=== PATIENT | female | born 1960 | race Caucasian/White ===

== ENCOUNTER 2020-05-14 14:55 | Outpatient (CLI) | payer OTHER, SELFPAY ==
--- NOTE | 2020-05-14 15:23 | MM_ITS ---
WS: [id number] BILATERAL DIGITAL SCREENING MAMMOGRAPHY WITH CAD CLINICAL INFORMATION: SCREEN HISTORY: Screening mammogram. No current complaints. COMPARISON: TECHNIQUE: Bilateral CC and MLO views. FINDINGS: The breasts are composed of heterogeneous fibroglandular density tissue, which can limit the detectio n of small underlying mass lesions. No suspicious mass, asymmetry, calcifications, or architectural d istortion. No evidence of malignancy. MM/[id number] IMPRESSION: BI-RADS: 1-Negative FOLLOW UP: 1 Year Follow-up Recommend return to annual screening mammography.
== END 2020-05-14 14:56 | disposition home or self-care (01) ==
PROVIDERS: PCP Family Medicine; Visit Provider Family Medicine
DX: Z12.31 Encounter for screening mammogram for malignant neoplasm of breast (principal)
CPT/HCPCS: 77067

== ENCOUNTER 2020-09-05 08:58 | Outpatient (CLI) | payer OTHER, SELFPAY ==
[2020-09-05 08:18] VITALS: BMI 30.2
[2020-09-05 09:13] VITALS: BP 172/88; PULSE 97; RESP 16; TEMP 37.3; O2SAT 98
--- NOTE | 2020-09-05 09:14 | A.OFFVIS_ITS ---
Patient Information Referred by: Anatoliy Kapadia Symptom onset date: 09/04/20 COVID 19 common symptoms: positive fever(s), chills and nasal congestion COVID 19 other sytmptoms: negative chest pressure, chest pain, pleuritic pain, requiring oxygen, requiring more oxygen or respiratory distress Severity: mild Treatment prior to arrival: antibiotics and steroids [facility] COVID test results: No Data to Display outside results available, scanned Criteria/Plan Inclusion/Exclusion Criteria weight >/= 40kg, + direct test </= 10 days ago and symptom onset </= 10 days ago age >/= 55 and has diabetes not requiring hospitalization, not requiring oxygen (if not chronically on oxygen) and no increase oxygen requirement (if chronically on oxygen) Patient education patient/caregiver received/reviewed fact sheet, Emergency Use Authorization /unapproved drug status discussed with patient/caregiver, alternatives to this treatment discussed with patient/caregiver, risks and benefits of medication reviewed with patient/caregiver, patient/caregiver given opportunity for questions, which were answered and patient/caregiver consents to receiving Monoclonal Antibody Treatment Plan for treatment Meets criteria for Monoclonal Antibody infusion
[2020-09-05 10:17] VITALS: BP 156/85; PULSE 79; RESP 16; O2SAT 99
[2020-09-05 11:13] VITALS: BP 170/81; PULSE 72; RESP 16; O2SAT 99
[2020-09-05 11:29] VITALS: BP 171/88; PULSE 80; RESP 18
[2020-09-05 12:10] VITALS: BP 153/84; PULSE 66; RESP 17; TEMP 37; O2SAT 99
[2020-09-05 12:11] VITALS: BP 153/84; PULSE 66; RESP 17; TEMP 37; O2SAT 99
--- NOTE | 2020-09-11 13:16 | DCPLANNER ---
Addendum entered by Kiah Lamb 09/17/20 14:01: purchasing manager called patient to check on patient after getting the BAM infusion. Patient stated that she is doing good. Has not been admitted anywhere. Original Note: purchasing manager had message that patient received the BAM infusion. purchasing manager called to check on patient. Patient stated that before the infusion that she had a head cold and a cough. Patient stated that after the infusion she just really has some cold symptoms. Patient stated that she is feeling good.
== END 2020-09-05 12:16 | disposition home or self-care (01) ==
PROVIDERS: PCP Family Medicine; Visit Provider Nurse Practitioner
DX: U07.1 COVID-19 (principal)
CPT/HCPCS: J7050

== ENCOUNTER 2021-12-02 12:41 | Outpatient (CLI) | payer OTHER, SELFPAY ==
--- NOTE | 2021-12-02 13:14 | MM_ITS ---
WS: [id number] BILATERAL 3D TOMOSYNTHESIS DIGITAL SCREENING MAMMOGRAPHY WITH CAD CLINICAL INFORMATION: SCREENING HISTORY: Screening mammogram. No current complaints. COMPARISON: May 14, 2020 TECHNIQUE: Bilateral CC and MLO views. FINDINGS: The breasts are composed of heterogeneous fibroglandular density tissue, which can limit the detectio n of small underlying mass lesions. Vascular calcification. Stable clustered calcifications central L EFT breast. A few benign lucent centered calcifications. No suspicious mass, asymmetry, calcification s, or architectural distortion. No evidence of malignancy. MM/[place] [id number] IMPRESSION: BI-RADS: 2-Benign FOLLOW UP: 1 Year Follow-up Recommend return to annual screening mammography.
== END 2021-12-02 12:42 | disposition home or self-care (01) ==
PROVIDERS: PCP Family Medicine; Visit Provider Family Medicine
DX: Z12.31 Encounter for screening mammogram for malignant neoplasm of breast (principal)
CPT/HCPCS: 77063; 77067

== ENCOUNTER 2023-02-16 12:50 | Outpatient (CLI) | payer OTHER, SELFPAY ==
--- NOTE | 2023-02-16 13:03 | MM_ITS ---
WS: [id number] BILATERAL 3D TOMOSYNTHESIS DIGITAL SCREENING MAMMOGRAPHY WITH CAD CLINICAL INFORMATION: SCREENING HISTORY: Screening mammogram. No current complaints. COMPARISON: 2021 TECHNIQUE: Bilateral CC and MLO views. FINDINGS: The breasts are composed of heterogeneous fibroglandular density tissue, which can limit the detectio n of small underlying mass lesions. No suspicious mass, asymmetry, calcifications, or architectural d istortion. No evidence of malignancy. Incidental punctate and lucent centered calcification RIGHT [place] ast. MM/[place] [id number] IMPRESSION: BI-RADS: 2-Benign FOLLOW UP: 1 Year Follow-up Recommend return to annual screening mammography.
== END 2023-02-16 12:51 | disposition home or self-care (01) ==
PROVIDERS: PCP Family Medicine; Visit Provider Family Medicine
DX: Z12.31 Encounter for screening mammogram for malignant neoplasm of breast (principal)
CPT/HCPCS: 77063; 77067

== ENCOUNTER 2024-03-13 14:38 | Outpatient (CLI) | payer OTHER, SELFPAY ==
--- NOTE | 2024-03-13 14:50 | MM_ITS ---
WS: [id number] BILATERAL 3D TOMOSYNTHESIS DIGITAL SCREENING MAMMOGRAPHY WITH CAD CLINICAL INFORMATION: SCREENING HISTORY: Screening mammogram. No current complaints. COMPARISON: 2022 TECHNIQUE: Bilateral CC and MLO views. FINDINGS: The breasts are composed of heterogeneous fibroglandular density tissue, which can limit the detectio n of small underlying mass lesions. No suspicious mass, asymmetry, calcifications, or architectural d istortion. No evidence of malignancy. Incidental lucent centered calcification RIGHT breast. MM/[place] [id number] IMPRESSION: BI-RADS: 2-Benign FOLLOW UP: 1 Year Follow-up Recommend return to annual screening mammography.
== END 2024-03-13 14:39 | disposition home or self-care (01) ==
PROVIDERS: Absent Provider Obstetrics & Gynecology Gynecologic Oncology; PCP Family Medicine; Visit Provider Family Medicine
DX: Z12.31 Encounter for screening mammogram for malignant neoplasm of breast (principal); R92.323 Mammographic fibroglandular density, bilateral breasts; R92.333 Mammographic heterogeneous density, bilateral breasts; R92.1 Mammographic calcification found on diagnostic imaging of breast
CPT/HCPCS: 77063; 77067

== ENCOUNTER → 2025-05-02 09:57 | Outpatient (BNVA) | payer MEDICARE, SELFPAY | PROVIDERS: PCP Family Medicine; Visit Provider Student in an Organized Health Care Education/Training Program | DX: M25.531 Pain in right wrist (principal); M65.4 Radial styloid tenosynovitis [de Quervain] | CPT/HCPCS: 20605; 73110; 99204; J3301; J3490 ==